=== PATIENT | male | born 1990 | race African-American/Black ===

== ENCOUNTER 2022-05-18 23:36 | Emergency (ER) | payer OTHER, SELFPAY ==
[2022-05-18 23:45] VITALS: BP 168/111; PULSE 83; RESP 16; TEMP 36.2; O2SAT 100
[2022-05-19 00:29] VITALS: BP 195/127; PULSE 79; RESP 16; O2SAT 100
--- NOTE | 2022-05-19 00:47 | ED.GENADULT ---
HPI - General Adult General Chief complaint: Recheck/Abnormal Lab/Rx Stated complaint: recheck bp, concern for htn Time Seen by Provider: 05/19/22 00:02 History of Present Illness HPI narrative: 32-year-old male no medical problems presents to the emergency room for evaluation of elevated blood pressure readings. Patient states that he was getting a physical earlier today at an urgent care when he was told he had elevated blood pressure readings. Patient was told to go home and sleep it off . Patient denies headaches, vision changes, chest pain or palpitations, lower extremity edema or nocturia. Related Data Allergies Allergy/AdvReac Type Severity Reaction Status Date / Time No Known Allergies Allergy Verified 05/18/22 23:44 Review of Systems Review of Systems: CONSTITUTIONAL: Denies fever, chills, or sweats. EYES: Denies visual changes, redness, or discharge. ENT: Denies rhinorrhea, congestion, sore throat, or otalgia. CARDIOVASCULAR: Denies chest pain, palpitations, or edema. RESPIRATORY: Denies cough or dyspnea. GASTROINTESTINAL: Denies abdominal pain, nausea, vomiting, or diarrhea. GENITOURINARY: Denies dysuria or hematuria. SKIN: Denies rash or itching. MUSCULOSKELETAL: Denies back pain, joint pain, or myalgia. NEUROLOGIC: Denies headache, numbness, dizziness, or weakness. PSYCHIATRIC: Denies anxiety or depression. Exam Narrative: GENERAL: Well-appearing, well-nourished, no physical limitations, and in no acute distress. HEAD: Normocephalic, atraumatic. EYES: Conjunctivae normal, PERRLA and EOMI. NECK: Supple. No carotid bruits or JVD CHEST: Clear to auscultation. No respiratory distress. No wheezes rales or rhonchi. HEART: Regular rate and rhythm. No murmur heard. Normal peripheral pulses. EXTREMITIES: Normal range of motion. No edema. No clubbing or cyanosis SKIN: Warm, dry, no rash. No noted wounds NEURO: No focal deficits. Alert and oriented x3. MAEW. CN's II-XI intact bilaterally, normal gait PSYCH: Cooperative. Normal mood and affect. Course Vital Signs Vital signs: Vital Signs Temperature 36.2 C L 05/18/22 23:45 Pulse Rate 83 05/18/22 23:45 Respiratory Rate 16 05/18/22 23:45 Blood Pressure 168/111 H 05/18/22 23:45 Pulse Oximetry 100 05/18/22 23:45 Oxygen Delivery Room Air 05/18/22 23:45 Temperature 36.2 C L 05/18/22 23:45 Pulse Rate 79 05/19/22 00:29 Respiratory Rate 16 05/19/22 00:29 Blood Pressure 185/111 H 05/19/22 01:40 Pulse Oximetry 100 05/19/22 00:29 Oxygen Delivery Room Air 05/18/22 23:45 Medical Decision Making Vital Signs Vital Signs: Vital Signs Temperature 36.2 C L 05/18/22 23:45 Pulse Rate 83 05/18/22 23:45 Respiratory Rate 16 05/18/22 23:45 Blood Pressure 168/111 H 05/18/22 23:45 Pulse Oximetry 100 05/18/22 23:45 Oxygen Delivery Room Air 05/18/22 23:45 Temperature 36.2 C L 05/18/22 23:45 Pulse Rate 79 05/19/22 00:29 Respiratory Rate 16 05/19/22 00:29 Blood Pressure 185/111 H 05/19/22 01:40 Pulse Oximetry 100 05/19/22 00:29 Oxygen Delivery Room Air 05/18/22 23:45 Lab Data 05/19/22 00:46 Labs: Lab Results 05/19/22 05/19/22 Range/Units 00:46 01:06 Sodium 136 L (137-145) mmol/L Potassium 3.5 (3.4-5.0) mmol/L Chloride 102 (98-107) mmol/L Carbon Dioxide 29 (22-30) mmol/L Anion Gap 5 L (8-16) mmol/L BUN 13 (9-20) mg/dL Creatinine 1.10 (0.7-1.3) mg/dL Estim Creat Clear Calc 105 ml/min Estimated GFR > 60 (59 - ) Glucose 99 (65-110) mg/dL Calcium 9.0 (8.4-10.2) mg/dL Urine Color Light yellow (Yellow) Urine Appearance Slightly cloudy (Clear) Urine pH 6.5 (5.0-9.0) Ur Specific [place] <= 1.005 (1.001-1.035) Urine Protein Negative (Negative) mg/dL Urine Glucose (UA) Negative (Negative) mg/dL Urine Ketones Negative (Negative) mg/dL Ur Blood (Man) Negative (Negative) Urine Nitrate Negative (Negat
[2022-05-19 01:01] LABS: Anion Gap 5 mmol/L (8-16); Blood Urea Nitrogen 13 mg/dL (9-20); Carbon Dioxide 29 mmol/L (22-30); Chloride 102 mmol/L (98-107); Estimated CRCL calculation 105 ml/min; Estimated Glomerular Filt Rate > 60; Glucose 99 mg/dL (65-110); Potassium 3.5 mmol/L (3.4-5.0); Sodium 136 mmol/L (137-145)
[2022-05-19] MEDS: amLODIPine BESYLATE 5 MG TABLET PO (01:08)
[2022-05-19 01:13] LABS: Appearance Urine Slightly Cloudy (Clear); Bilirubin Urine Negative (Negative); Blood Urine Negative (Negative); Color Urine Light Yellow (Yellow); Glucose Urine UA Negative (Negative); Ketones Urine Negative (Negative); Leukocyte Esterase Ur Negative LEU/UL (Negative); Nitrate Urine Negative (Negative); Protein Urine Negative (Negative); Specific Grav Ur <= 1.005 (1.001-1.035); Urobilinogen Urine 0.2 mg/dL (<2.0); pH Urine 6.5 (5.0-9.0)
[2022-05-19 01:26] LABS: Bacteria Urine Trace /hpf; Mucus Urine Rare /lpf; RBC Urine 0-2 /hpf (0-2); Squamous Epithelial Cell Urine Rare /hpf (Few)
[2022-05-19 01:40] VITALS: BP 185/111
[2022-05-19 02:16] VITALS: BP 178/123; PULSE 70; RESP 16; TEMP 36.8; O2SAT 99
[2022-05-19 11:06] LABS: Add Urine Microscopic? YES
== END 2022-05-19 02:18 | disposition home or self-care (01) ==
PROVIDERS: Emergency Provider Nurse Practitioner Family
DX: I10 Essential (primary) hypertension (principal)
CPT/HCPCS: 36415; 80048; 81001; 81003; 99283; A9270

== ENCOUNTER 2022-11-18 16:27 | Emergency (ER) | payer OTHER, SELFPAY ==
[2022-11-18 16:29] VITALS: BP 151/97; PULSE 86; RESP 20; TEMP 36.8; O2SAT 100
[2022-11-18 16:50] VITALS: BP 163/104; PULSE 84
[2022-11-18 16:52] VITALS: BP 157/103; PULSE 84
[2022-11-18 16:53] VITALS: BP 166/109; PULSE 88
[2022-11-18 16:57] LABS: Basophils Percent Auto 0.2 % (0.2-1.2); Eosinophils Absolute Auto 0.1 K/mm3 (0-0.3); Eosinophils Percent Auto 1.3 % (0-4.4); Hematocrit 46.2 % (42.0-52.0); Hemoglobin 15.8 g/dL (14.0-18.0); Immature Granulocyte Absolute 0.01 K/mm3 (0.00-0.031); Immature Granulocyte Percent A 0.2 % (0-0.5); Lymphocytes Absolute Auto 1.92 K/mm3 (0.9-3.2); Mean Corpuscular HGB Conc 34.2 g/dl (32-36); Mean Corpuscular Volume 90.6 fl (80-100); Mean Platelet Volume 10.9 fl (7.4-10.4); Monocytes Absolute Auto 0.3 K/mm3 (0.1-0.6); Monocytes Percent Auto 5.6 % (2.6-8.5); Neutrophils Absolute Auto 2.2 K/mm3 (1.3-6.7); Neutrophils Percent Auto 49.7 % (45.5-73.1); Platelet Count Result 295 k/mm3 (150-375); Red Cell Distribution Width 11.5 % (11.5-14.5); White Blood Count 4.5 K/mm3 (4.5-10.0)
--- NOTE | 2022-11-18 16:58 | ED.NAVMDI ---
HPI - Nausea/Vomiting/Diarrhea General Chief complaint: Nausea/Vomiting/Diarrhea Stated complaint: nausea/vomiting Time Seen by Provider: 11/18/22 16:47 History of Present Illness HPI Narrative: 32-year-old male presents to the emergency room for evaluation for diarrhea alternating with constipation. He started having diarrhea 2 days ago after eating some suspicious food. He took some [id number] Imodium and the diarrhea stopped but now he feels like he is constipated. Denies having any nausea or vomiting. No abdominal pain. No fever or chills. No other problems or concerns today. Related Data Allergies Allergy/AdvReac Type Severity Reaction Status Date / Time No Known Allergies Allergy Verified 11/18/22 16:47 Review of Systems Review of Systems: CONSTITUTIONAL: Denies fever, chills, or sweats. EYES: Denies visual changes, redness, or discharge. ENT: Denies rhinorrhea, congestion, sore throat, or otalgia. CARDIOVASCULAR: Denies chest pain, palpitations, or edema. RESPIRATORY: Denies cough or dyspnea. GASTROINTESTINAL: As per HPI GENITOURINARY: Denies dysuria or hematuria. SKIN: Denies rash or itching. MUSCULOSKELETAL: Denies back pain, joint pain, or myalgia. NEUROLOGIC: Denies headache, numbness, dizziness, or weakness. PSYCHIATRIC: Denies anxiety or depression. Exam Narrative: GENERAL: Well-appearing, well-nourished, and in no acute distress. HEAD: Normocephalic, atraumatic. EYES: PERRLA and EOMI. NECK: Supple. No adenopathy or masses. No carotid bruits or JVD CHEST: Clear to auscultation. No respiratory distress. No wheezes rales or rhonchi HEART: Regular rate and rhythm. No murmur heard. Normal peripheral pulses. ABDOMEN: Soft, nontender, nondistended, normal active bowel sounds. EXTREMITIES: Normal range of motion. No edema. SKIN: Warm, dry, no rash. NEURO: No focal deficits. Alert and oriented x3. PSYCH: Normal mood and affect. Course Vital Signs Vital signs: Vital Signs Temperature 36.8 C 11/18/22 16:29 Pulse Rate 86 11/18/22 16:29 Respiratory Rate 20 11/18/22 16:29 Blood Pressure 151/97 H 11/18/22 16:29 Pulse Oximetry 100 11/18/22 16:29 Oxygen Delivery Room Air 11/18/22 16:29 Temperature 36.8 C 11/18/22 16:29 Pulse Rate 88 11/18/22 16:53 Respiratory Rate 20 11/18/22 16:29 Blood Pressure 166/109 H 11/18/22 16:53 Pulse Oximetry 100 11/18/22 16:29 Oxygen Delivery Room Air 11/18/22 16:29 MDM - Nausea/Vomiting/Diarrhea Lab Data 11/18/22 16:50 11/18/22 16:50 Labs: Lab Results 11/18/22 11/18/22 Range/Units 16:48 16:50 WBC Pending RBC Pending Hgb Pending Hct Pending MCV Pending MCH Pending MCHC Pending RDW Pending Plt Count Pending MPV Pending Immature Gran % (Auto) Pending Neut % (Auto) Pending Lymph % (Auto) Pending [place] % (Auto) Pending Eos % (Auto) Pending Baso % (Auto) Pending Lymph # (Auto) Pending [place] # (Auto) Pending Eos # (Auto) Pending Baso # (Auto) Pending Abs Immat Gran (auto) Pending Absolute Neuts (auto) Pending Absolute Nucleated RBC Pending Nucleated RBC % Pending Sodium Pending Potassium Pending Chloride Pending Carbon Dioxide Pending Anion Gap Pending BUN Pending Creatinine Pending Estim Creat Clear Calc Pending Estimated GFR Pending Glucose Pending Calcium Pending Total Bilirubin Pending AST Pending ALT Pending Alkaline Phosphatase Pending Total Protein Pending Albumin Pending Lipase Pending Urine Color Pending Urine Appearance Pending Urine pH Pending Ur Specific [place] Pending Urine Protein Pending Urine Glucose (UA) Pending Urine Ketones Pending Ur Blood (Man) Pending Urine Nitrate Pending Urine Bilirubin Pending Urine Urobilinogen Pending Leukocy
[2022-11-18 17:08] LABS: Alanine Aminotransferase 35 U/L (6-50); Albumin Level 5.1 g/dL (3.5-5.1); Alkaline Phosphatase 91 U/L (38-126); Anion Gap 7 mmol/L (8-16); Aspartate Amino Transferase 38 U/L (17-59); Bilirubin,Total 0.8 mg/dL (0.2-1.3); Blood Urea Nitrogen 9 mg/dL (9-20); Calcium 9.1 mg/dL (8.4-10.2); Carbon Dioxide 28 mmol/L (22-30); Chloride 103 mmol/L (98-107); Estimated CRCL calculation 116 ml/min; Estimated Glomerular Filt Rate > 60; Glucose 93 mg/dL (65-110); Lipase 90 U/L (23-300); Potassium 3.6 mmol/L (3.4-5.0); Sodium 138 mmol/L (137-145)
[2022-11-18 17:08] LABS: Appearance Urine Clear (Clear); Bilirubin Urine Negative (Negative); Blood Urine Negative (Negative); Color Urine Yellow (Yellow); Glucose Urine UA Negative (Negative); Ketones Urine Negative (Negative); Leukocyte Esterase Ur Negative LEU/UL (Negative); Nitrate Urine Negative (Negative); Protein Urine Negative (Negative); Specific Grav Ur 1.014 (1.001-1.035); pH Urine 6.5 (5.0-9.0)
[2022-11-18] MEDS: SODIUM CHLORIDE 0.9% IV 1,000 ML 999 ML IV CONT (17:11)
[2022-11-18 17:20] LABS: Add Urine Microscopic? NO
== END 2022-11-18 17:50 | disposition home or self-care (01) ==
PROVIDERS: Emergency Medicine; Emergency Provider Nurse Practitioner Family; PCP Family Medicine
DX: K52.9 Noninfective gastroenteritis and colitis, unspecified (principal)
CPT/HCPCS: 36415; 80053; 81003; 83690; 85025; 96360; 99283; J7030

== ENCOUNTER 2024-03-06 17:55 | Emergency (ER) | payer OTHER, SELFPAY ==
[2024-03-06 17:57] VITALS: BP 190/112; PULSE 97; RESP 18; TEMP 36.9; O2SAT 100
--- NOTE | 2024-03-06 18:00 | ED.GENADULT ---
HPI - General Adult General Chief complaint: Unspecified Stated complaint: STI check Time Seen by Provider: 03/06/24 18:00 Source: patient Mode of arrival: ambulatory Limitations: no limitations History of Present Illness HPI narrative: Patient is a 34 y/o male who presents to the ED with c/o STI check. Patient reports he has had some mild irritation and tingling with urination over the last 2 days. He states his partner was recently tested for STDs and resulted positive for Trichomonas. He would like to be tested and treated for this. Denies significant penile drainage. Denies testicular pain or swelling, abdominal pain, genital lesions, hematuria, fevers. Related Data Allergies Allergy/AdvReac Type Severity Reaction Status Date / Time No Known Allergies Allergy Verified 11/18/22 16:47 Review of Systems Review of Systems: All systems reviewed & are unremarkable except as noted in HPI. All systems reviewed & are unremarkable except as noted in HPI and below Exam Narrative: GENERAL: Well appearing, obese with BMI of 33.2, non-toxic, in no acute distress. HEAD: Normocephalic, atraumatic. RESPIRATORY: Airway patent, respirations nonlabored. CARDIOVASCULAR: Regular rate and rhythm MUSCULOSKELETAL: Moves all extremities. No gross deformities. SKIN: Warm, dry, normal color. NEURO: A&O X3. Speech clear. Steady gait. No ataxic movements. PSYCHIATRIC: Appropriate mood and affect. Normal interaction. Course Vital Signs Vital signs: Vital Signs Temperature 98.4 F 03/06/24 17:57 Pulse Rate 97 03/06/24 17:57 Respiratory Rate 18 03/06/24 17:57 Blood Pressure 190/112 H 03/06/24 17:57 Pulse Oximetry 100 03/06/24 17:57 Temperature 98.4 F 03/06/24 17:57 Pulse Rate 97 03/06/24 17:57 Respiratory Rate 18 03/06/24 17:57 Blood Pressure 190/112 H 03/06/24 17:57 Pulse Oximetry 100 03/06/24 17:57 Medical Decision Making MDM Narrative Medical decision making narrative: patient presented to ED wanting to be tested and treated for Trichomonas. Known exposure to sexual partner who tested positive for Trich. Urine sample obtained. Unremarkable. No signs of infection. Sent for gonorrhea, chlamydia, Trichomonas. Patient would like to be prophylactically treated for Trichomonas. Given 2 g dose in the ED for up-to-date guidelines. Will be d/c. Will be given info on MyChart to look up results. Discussed having all sexual partners tested and treated, avoiding sexual intercourse until test of care, return precautions. Discharged in stable condition. Medical Records Medical records reviewed: Yes I reviewed the external patient's medical records. Vital Signs Vital Signs: Vital Signs Temperature 98.4 F 03/06/24 17:57 Pulse Rate 97 03/06/24 17:57 Respiratory Rate 18 03/06/24 17:57 Blood Pressure 190/112 H 03/06/24 17:57 Pulse Oximetry 100 03/06/24 17:57 Temperature 98.4 F 03/06/24 17:57 Pulse Rate 97 03/06/24 17:57 Respiratory Rate 18 03/06/24 17:57 Blood Pressure 190/112 H 03/06/24 17:57 Pulse Oximetry 100 03/06/24 17:57 Lab Data Lab results reviewed: Yes I reviewed the patient's lab results. Labs: Lab Results 03/06/24 Range/Units 18:08 Urine Color Yellow (Yellow) Urine Appearance Clear (Clear) Urine pH 6.5 (5.0-9.0) Ur Specific [place] 1.021 (1.001-1.035) Urine Protein Trace (Negative) mg/dL Urine Glucose (UA) Negative (Negative) mg/dL Urine Ketones Trace H (Negative) mg/dL Ur Blood (Man) Negative (Negative) Urine Nitrate Negative (Negative) Urine Bilirubin Negative (Negative) Urine Urobilinogen 0.2 (<2.0) mg/dL Leukocyte Esterase Rfl Negative (Negative) NAIN/UL Urine RBC 0-2 (0-2) /hpf Urine WBC 0-5 (0-3) /hpf Ur Squamous Epith Cells None seen (Few) /hpf Urine Bacteria None seen /hpf Urine Casts 0-2 C. trachomatis (PCR) Pending N. gonorrhoeae (PCR) Pending T. vaginal
[2024-03-06 18:27] LABS: Add Urine Microscopic? YES; Appearance Urine Clear (Clear); Bacteria Urine None Seen /hpf; Bilirubin Urine Negative (Negative); Blood Urine Negative (Negative); Color Urine Yellow (Yellow); Glucose Urine UA Negative (Negative); Ketones Urine Trace mg/dL (Negative); Leukocyte Esterase Ur Negative LEU/UL (Negative); Nitrate Urine Negative (Negative); Non Pathogenic Casts 0-2; Protein Urine Trace mg/dL (Negative); RBC Urine 0-2 /hpf (0-2); Specific Grav Ur 1.021 (1.001-1.035); Squamous Epithelial Cell Urine None Seen /hpf (Few); Urobilinogen Urine 0.2 mg/dL (<2.0); WBC Urine 0-5 /hpf (0-3); pH Urine 6.5 (5.0-9.0)
[2024-03-06] MEDS: metroNIDAZOLE 500 MG TABLET 2000 MG PO (18:47)
[2024-03-06 18:53] VITALS: BP 156/115; PULSE 95; RESP 16; TEMP 36.4; O2SAT 100
[2024-03-06 19:33] LABS: Trichomonas Vag PCR NOT DETECTED (NOT DETECTE)
[2024-03-06 19:55] LABS: Chlamydia trachomatis NOT DETECTED (NOT DETECTE); Neisseria gonorrhoeae PCR NOT DETECTED (NOT DETECTE)
== END 2024-03-06 18:59 | disposition home or self-care (01) ==
LOC: ANHED 18:57
PROVIDERS: Emergency Provider Physician Assistant; PCP Family Medicine
DX: R30.0 Dysuria (principal); Z20.2 Contact with and (suspected) exposure to infections with a predominantly sexual mode of transmission
CPT/HCPCS: 81001; 87491; 87591; 87661; 99283; A9270

== ENCOUNTER 2024-12-05 17:44 | Emergency (ER) | payer OTHER, SELFPAY ==
[2024-12-05] VITALS (17 sets, daily range): BP systolic 174–217; BP diastolic 100–126; PULSE 74–94; RESP 13–20; TEMP 36.4–37; O2SAT 97–100
--- OUTSIDE RECORDS SUMMARY | 2024-12-05 17:46 | XMS_ITS | Clinical Summary ---
Author Organization [facility] Virtual Care Address [address] [place] [phone] Phone Care Team Providers Care Retail Consultant Name Role Phone No, Physician Primary Care Provider [phone] Allergies No known active allergies Medications lidocaine viscous (XYLOCAINE) 2 % solution Apply 10 mL to the mouth or throat 3 (three) times a day 120 mL 12/05/2020 Active amoxicillin-clav ulanate (AUGMENTIN) 875-125 mg per tablet Take 1 tablet by mouth every 12 (twelve) hours 14 tablet 12/05/2020 Active naproxen (NAPROSYN) 500 mg tablet Take 1 tablet (500 mg total) by mouth 2 (two) times a day with meals 20 tablet 02/04/2021 Active cyclobenzaprine (FLEXERIL) 10 mg tablet Take 1 tablet (10 mg total) by mouth 2 (two) times a day as needed for muscle spasms 15 tablet 02/04/2021 Active Active Problems No known active problems Social History Tobacco Use Types Packs/Day Years Used Date Smoking Tobacco: Never Assessed Personal Safety Answer Date Recorded Getting School Help Needed Not on file 07/22 Sex and Gender Information Value Date Recorded Sex Assigned at Not on file 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 Gender Identity Not on file Sexual Orientation Not on file Last Filed Vital Signs Vital Sign Reading Time Taken Comments Blood Pressure 144/109 04/02/2021 2:10 AM CDT Pulse 121 04/02/2021 2:10 AM CDT Temperature 36.9 C (98.5 F) 04/01/2021 8:34 PM CDT Respiratory Rate 16 04/01/2021 8:43 PM CDT Oxygen Saturation 100% 04/02/2021 2:10 AM CDT Inhaled Oxygen Concentration - - Weight 99.4 kg (219 lb 2.2 oz) 04/01/2021 8:34 P M CDT Height 175.3 cm (5' 9) 04/01/2021 8:34 PM CDT Body Mass Index 32.36 04/01/2021 8:34 PM CDT Plan of Treatment Not on file Insurance [facility] PLAN [employer] THIRD LIBERTARIAN LIABILITY - GENERIC MRA Care Teams Retail Consultant Relationship Specialty Start Date End Date No, Physician PCP - General 12/05/20
--- OUTSIDE RECORDS SUMMARY | 2024-12-05 17:46 | XMS_ITS | Referral Summary ---
Author Organization 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
--- OUTSIDE RECORDS SUMMARY | 2024-12-05 17:46 | XMS_ITS | Clinical Summary ---
Author Organization [facility] Address [facility] [place] [address] Care Team Providers Care Dispensing And Measuring Optician Name Role Phone None, Provider MD Primary Care Provider Unavaila ble Allergies No known active allergies Medications fluticasone propionate (FLONASE) 50 MCG/ACT nasal spray 1 spray by Nasal route daily. 9.9 mL 01/25/2021 Active loratadine (CLARITIN) 10 MG tablet Take 1 tablet (10 mg total) by mouth daily. 30 tablet 01/25/2021 Active Family History Medical History Relation Comments No Known Problems Father No Known Problems Mother Relation Status Comments Father Mother Social History Tobacco Use Types Packs/Day Years Used Date Smoking Tobacco: Never Smokeless Tobacco: Never Alcohol Use Standard Drinks/Week Comments Never 0 (1 standard drink = 0.6 oz pur e alcohol) Sex and Gender Information Value Date Recorded Sex Assigned at Not on file Legal Sex Male 3:32 PM CDT Gender Identity Not on file Sexual Orientation Not on file Last Filed Vital Signs Vital Sign Reading Time Taken Comments Blood Pressure 150/86 01/25/2021 3:54 PM CDT Pulse 91 01/25/2021 3:54 PM CDT Temperature 38.2 C (100.7 F) 01/25/2021 3:54 PM CDT Respiratory Rate 20 01/25/2021 3:54 PM CDT Oxygen Saturation 98% 01/25/2021 3:54 PM CDT Inhaled Oxygen Concentration - - Weight 86.2 kg (190 lb) 01/25/2021 3:54 PM CDT Height 175.3 cm (5' 9) 01/25/2021 3:54 PM CDT Body Mass Index 28.06 01/25/2021 3:54 PM CDT Plan of Treatment Health Maintenance Due Date Last Done Comments Annual Physical 1994 Hepatitis C 2009 DTaP, Tdap and Td Vaccines (1 - Tdap) 2010 11/15/1996, 06/30/1993, 1991, Additional history exists Hepatitis B Vaccines (1 of 3 - 19+ 3-dose series) 2010 COVID-19 Vaccine ( - 2023-25 season) 2024 HPV Vaccines Aged Out No longer eligi ble based on patient's age to complete this topic Meningococcal B Vaccine Aged Out No l onger eligible based on patient's age to complete this topic Meningococcal Vaccine Aged Out No usama elizabeth eligible based on patient's age to complete this topic Pneumococcal Vaccine: Pediatrics (0 to 5 Years) and At-Risk Patients (6 to 49 Years) Aged Out No longer eligible based on patient's age to complete this topic RSV Immunizations Under 20 Months Aged Out No longer eligible based on patient's age to complete this topic Insurance Care Teams Dispensing And Measuring Optician Relationship Specialty Start Date End Date None, Provider, PCP - General 01/25/21
--- NOTE | 2024-12-05 18:29 | ED_ITS ---
HPI - General Adult General Chief complaint: Unspecified Stated complaint: needs antihypertensive refill Time Seen by Provider: 12/05/24 18:25 Source: patient Mode of arrival: ambulatory Limitations: no limitations History of Present Illness HPI narrative: This is a 34-year-old male that presents to the emergency department for nausea, vomiting and diarrhea. Ongoing over the last couple of days. Reports he tried to be seen at urgent care and his blood pressure was quite elevated, he was sent to the ER for further evaluation. He does endorse he has not taken his amlodipine for several months. Also reports cough, sore throat. Denies fevers, abdominal pain. Related Data Allergies Allergy/AdvReac Type Severity Reaction Status Date / Time No Known Allergies Allergy Verified 11/18/22 16:47 Review of Systems 2 Review of Systems: All systems reviewed & are unremarkable except as noted in HPI and below PMFSH Past Medical History Medical History (Updated 12/05/24 @ 20:59 by Lucia Singh PA-C) History of hypertension Exam 2 Narrative: GENERAL: Well-appearing, well-nourished, and in no acute distress. HEAD: Normocephalic, atraumatic. EYES: EOMI. ENT: Nares clear, no rhinorrhea or epistaxis. Mucous membranes moist. Oropharynx without tonsillar hypertrophy exudate or other lesions. NECK: Supple. No adenopathy or masses. CHEST: Clear to auscultation. No respiratory distress. No wheezes rales or rhonchi HEART: Regular rate and rhythm. No murmur heard. Normal peripheral pulses. ABDOMEN: Soft, nontender, nondistended, normal active bowel sounds. EXTREMITIES: Normal range of motion. No edema. SKIN: Warm, dry, no rash. NEURO: No focal deficits. Alert and oriented x3. PSYCH: Normal mood and affect Course Course Emergency Course: Patient updated on his workup. Resting comfortably Vital Signs Vital signs: Vital Signs Temperature 97.6 F 12/05/24 17:44 Pulse Rate 94 12/05/24 17:44 Respiratory Rate 16 12/05/24 17:44 Blood Pressure 217/122 H 12/05/24 17:44 Pulse Oximetry 100 12/05/24 17:44 Temperature 97.6 F 12/05/24 17:44 Pulse Rate 84 12/05/24 19:04 Respiratory Rate 15 12/05/24 19:06 Blood Pressure 186/126 H 12/05/24 19:02 Pulse Oximetry 99 12/05/24 19:06 Oxygen Delivery Room Air 12/05/24 19:02 Medical Decision Making [facility] Narrative Medical decision making narrative: Patient presents the emergency department for medication refill. Patient reports he has not had his amlodipine in several months. Blood pressure elevated in the 200 systolic upon arrival, this improved after taking his amlodipine. Also endorsing viral symptoms. Cbc metabolic panel without concerning findings. Influenza, RSV COVID screens are negative. Patient was updated on his workup and agrees with plan of care. He is to follow up with primary provider. He was given warnings to return to the ER Differential Diagnosis Differential Diagnosis: Gastroenteritis, viral syndrome, dehydration, electrolyte derangement, COVID, influenza, chronic hypertension Vital Signs Vital Signs: Vital Signs Temperature 97.6 F 12/05/24 17:44 Pulse Rate 94 12/05/24 17:44 Respiratory Rate 16 12/05/24 17:44 Blood Pressure 217/122 H 12/05/24 17:44 Pulse Oximetry 100 12/05/24 17:44 Temperature 97.6 F 12/05/24 17:44 Pulse Rate 84 12/05/24 19:04 Respiratory Rate 15 12/05/24 19:06 Blood Pressure 186/126 H 12/05/24 19:02 Pulse Oximetry 99 12/05/24 19:06 Oxygen Delivery Room Air 12/05/24 19:02 Lab Data Lab results reviewed: Yes I reviewed the patient's lab results. 12/05/24 18:44 12/05/24 18:44 Labs: Lab Results 12/05/24 Range/Units 18:44 WBC 5.9 (4.5-10.0) K/mm3 RBC 4.47 L (4.6-6.20) M/mm3 Hgb 14.3 (14.0-18.0) g/dL Hct 41.9 L (42.0-52.0) % MCV 93.7 (80-100) fl MCH 32.0 (26-34) pg MCHC 34.1 (32-36) g/dl RDW 11.8 (11.5-14.5) % Plt Count 208 (150-375) k/mm3 MPV 11.1 H (7.4-10.4) fl Immature Gran % (Auto) 0.0 (0-0.5) % Neut % (Auto) 59.9 (45.5-73.1) % Lymph % (Auto) 30.5 (18.3-44.2) % [place] % (Auto) 8.7 H (2.6-8.5) % Eos % (Auto) 0.7 (0-4.4) % Baso % (Auto) 0.2 (0.2-1.2) % Lymph # (Auto) 1.79 (0.9-3.2) K/mm3 [place] # (Auto) 0.5 (0.1-0.6) K/mm3 Eos # (Auto) 0.0 (0-0.3) K/mm3 Baso # (Auto) 0.0 (0.0-0.1) K/mm3 Abs Immat Gran (auto) 0.00 (0.00-0.031) K/mm3 Absolute Neuts (auto) 3.5 (1.3-6.7) K/mm3 Absolute Nucleated RBC 0.000 (0.0-0.012) K/mm3 Nucleated RBC % 0.0 (0.0-0.2) % Sodium 137 (137-145) mmol/L Potassium 3.5 (3.4-5.0) mmol/L Chloride 102 (98-107) mmol/L Carbon Dioxide 27 (22-30) mmol/L Anion Gap 8 (4-12) mmol/L BUN 13 (9-20) mg/dL Creatinine 1.00 (0.7-1.3) mg/dL Estim Creat Clear Calc 113 ml/min Estimated GFR > 60 (59 - ) Glucose 93 (65-110) mg/dL Calcium 9.1 (8.4-10.2) mg/dL Total Bilirubin 0.6 (0.2-1.3) mg/dL AST 40 (17-59) U/L ALT 29 (6-50) U/L Alkaline Phosphatase 54 (38-126) U/L Total Protein 8.4 H (6.3-8.2) g/dL Albumin 4.9 (3.5-5.1) g/dL Lipase 280 (23-300) U/L Influenza A (RT-PCR) Negative (Negative) Influenza B (RT-PCR) Negative (Negative) RSV (RT-PCR) Negative (Negative) SARS-CoV-2 RNA (RT-PCR) Negative (Negative) Critical Care Time Critical Care Time Critical Care Time: No Discharge Plan Discharge Clinical Impression: Hypertension, Gastroenteritis, Medication refill, Acute viral syndrome Patient Disposition: Home Condition: Stable Instructions: Gastroenteritis (ED), Chronic Hypertension (ED), Medicine Refill (ED) Additional Instructions: Return to the emergency department if you experience fever, chest pain, shortness of breath, abdominal pain with nausea and vomiting, weakness, numbness/tingling, or any other symptoms that are concerning to you. Take your blood pressure medication as prescribed Follow up with primary care doctor Patient Language: Australian Prescriptions: New amlodipine 10 mg tablet 10 mg PO DAILY 30 Days Qty: 30 0RF No Action amlodipine 5 mg tablet 5 mg PO DAILY Qty: 30 0RF Follow-up/Referrals: Az Belcher MD [Primary Care Provider] -
--- OUTSIDE RECORDS SUMMARY | 2024-12-05 18:31 | XMS_ITS | Clinical Summary ---
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
--- OUTSIDE RECORDS SUMMARY | 2024-12-05 18:31 | XMS_ITS | Clinical Summary ---
Author Organization [facility] Address [facility] [place] [address] Care Team Providers Care Manager Neonatal Name Role Phone None, Provider MD Primary [...] to complete this topic Insurance Care Teams Manager Neonatal Relationship Specialty Start Date End Date None, Provider, PCP - General 01/25/21
--- OUTSIDE RECORDS SUMMARY | 2024-12-05 18:31 | XMS_ITS | Referral Summary ---
Author Organization [facility] Virtual Care Address [address] [place] [phone] Phone Care Team Providers Care Gun Fitter Name Role Phone No, Physician Primary Care Provider Allergies No known active allergies Medications lidocaine [...] on file Legal Sex Male 10:06 PM [employer] Gender Identity Not on file Sexual Orientation [...] Plan of Treatment Not on file Insurance [facility] PLAN [facility] PLAN [facility] PLAN [employer] LIABILITY - GENERIC MRA Care Teams Gun Fitter Relationship Specialty Start Date End Date No, Physician PCP - General 12/05/20
[2024-12-05 18:51] LABS: Hematocrit 41.9 % (42.0-52.0); Hemoglobin 14.3 g/dL (14.0-18.0); Immature Granulocyte Percent A 0.0 % (0-0.5); Lymphocytes Absolute Auto 1.79 K/mm3 (0.9-3.2); Mean Corpuscular HGB Conc 34.1 g/dl (32-36); Mean Corpuscular Hemoglobin 32.0 pg (26-34); Mean Corpuscular Volume 93.7 fl (80-100); Nucleated Red Blood Cells Absolute Auto 0.000 K/mm3 (0.0-0.012); Nucleated Red Blood Cells Perc 0.0 % (0.0-0.2); Platelet Count Result 208 k/mm3 (150-375); Red Blood Count 4.47 M/mm3 (4.6-6.20); White Blood Count 5.9 K/mm3 (4.5-10.0)
[2024-12-05] MEDS: FAMOTIDINE 20 MG/2 ML VIAL IV PUSH (18:56)
[2024-12-05] MEDS: ONDANSETRON INJ 4 MG/2 ML VIAL IV PUSH (18:57)
[2024-12-05] MEDS: SODIUM CHLORIDE 0.9% IV 1,000 ML 999 ML IV CONT (18:58)
[2024-12-05 19:02] LABS: Alanine Aminotransferase 29 U/L (6-50); Albumin Level 4.9 g/dL (3.5-5.1); Alkaline Phosphatase 54 U/L (38-126); Anion Gap 8 mmol/L (4-12); Aspartate Amino Transferase 40 U/L (17-59); Bilirubin,Total 0.6 mg/dL (0.2-1.3); Blood Urea Nitrogen 13 mg/dL (9-20); Calcium 9.1 mg/dL (8.4-10.2); Carbon Dioxide 27 mmol/L (22-30); Chloride 102 mmol/L (98-107); Estimated CRCL calculation 113 ml/min; Estimated Glomerular Filt Rate > 60; Glucose 93 mg/dL (65-110); Lipase 280 U/L (23-300); Potassium 3.5 mmol/L (3.4-5.0); Sodium 137 mmol/L (137-145); Total Protein 8.4 g/dL (6.3-8.2)
[2024-12-05 19:27] LABS: Influenza A QL RT-PCR Negative (Negative); Influenza B QL RT-PCR Negative (Negative); RSV RNA, RT-PCR Negative (Negative); SARS-CoV-2 RNA PCR Negative (Negative)
== END 2024-12-05 21:46 | disposition home or self-care (01) ==
PROVIDERS: Emergency Provider Physician Assistant; PCP Family Medicine
DX: I10 Essential (primary) hypertension (principal); K52.9 Noninfective gastroenteritis and colitis, unspecified; B34.9 Viral infection, unspecified; Z91.148 Patient's other noncompliance with medication regimen for other reason; Z20.822 Contact with and (suspected) exposure to COVID-19
CPT/HCPCS: 36415; 80053; 83690; 85025; 87637; 96361; 96374; 96375; 99284; A9270; J2405; J7030